=== PATIENT | female | born 1980 | race Caucasian/White ===

== ENCOUNTER 2021-04-15 21:57 | Emergency (ER) | payer OTHER, SELFPAY ==
--- NOTE | ~2021-04-15 | CT_ITS ---
EXAMINATION: CT brain wo con INDICATION: Head injury COMPARISON: 04/21/2019 TECHNIQUE: Standard unenhanced head CT. The dose-length product (DLP) was 681.00 mGy-cm. The mA was a djusted according to patient size. Iterative reconstruction technique was employed. FINDINGS: There is no intracranial hemorrhage, acute infarction, or abnormal mass lesion. There is a chronic infarct of the left occipital lobe. A left posterior parietal scalp hematoma is noted. The ve ntricles are normal. There is no abnormal mass effect or midline shift. The dick-white matter differe ntiation is normal. The basal cisterns are patent. The orbits are normal. The paranasal sinuses, mast oids and calvarium are normal. IMPRESSION: 1. Left parietal scalp hematoma without acute intracranial abnormality. 2. Chronic left occipital lobe infarct. Reviewed, dictated and finalized at location D.
--- NOTE | ~2021-04-15 | CT_ITS ---
EXAMINATION: CT cervical spine wo con DATE: 04/16/2021 01:13 INDICATION: Neck injury and pain. Fall. TECHNIQUE: Computed tomography (CT) of the cervical spine was performed without intravenous contrast. Automated exposure control and iterative reconstruction technique were employed. The dose-length pro duct was 352.54 mGy-cm. COMPARISON: None FINDINGS: There is hypolordosis of cervical spine. Vertebral body heights are normal. There is mildly decreased disc height at C4-C5. The following disc levels are specifically discussed: C2-C3 through C6-C7: There is no uncovertebral joint osteoarthritis. There is no facet joint osteoart hritis. There is no neural foraminal stenosis. There is no central canal stenosis. C7-T1: There is no uncovertebral joint osteoarthritis. There is mild bilateral facet joint osteoarthr itis. There is no neural foraminal stenosis. There is no central canal stenosis. IMPRESSION: 1. No fracture. Reviewed, dictated and finalized at location A. IMPRESSION: 1. No fracture.
--- NOTE | ~2021-04-15 | CT_ITS ---
EXAMINATION: CT thoracic spine wo con DATE: 04/16/2021 01:14 INDICATION: Thoracic back injury and pain. TECHNIQUE: Computed tomography (CT) of the thoracic spine was performed without intravenous contrast. Automated exposure control and iterative reconstruction technique were employed. The dose-length pro duct was 1073.30 mGy-cm. COMPARISON: CT abdomen and pelvis 02/02/2012 FINDINGS: There is 5 degrees dextrocurvature of thoracic spine. There is a burst fracture of T5 with 1/5 loss of height and retropulsion of bone 2 mm into central spinal canal. There is a compression fr acture of T7 with 1/5 loss of height. Intervertebral disc heights are normal. There is multilevel mil d facet joint osteoarthritis. On the left, there is mild neural foraminal stenosis at T3-T4. There is mild central canal stenosis at T5. IMPRESSION: 1. Acute T5 burst fracture. T7 compression fracture, likely acute. 2. Mild thoracic spondylosis. Reviewed, dictated and finalized at location A.
[2021-04-15 22:11] VITALS: BP 125/108; PULSE 85; RESP 16; TEMP 36.4; O2SAT 100
[2021-04-15 23:25] VITALS: BP 124/92; PULSE 80; RESP 16; O2SAT 99
--- NOTE | 2021-04-16 00:43 | ED.HEATRA ---
HPI - Head Injury General Chief complaint: Head Injury Stated complaint: fell down stairs, hit head, short of breath Time Seen by Provider: 04/16/21 00:16 Source: patient Mode of arrival: ambulatory Limitations: no limitations History of Present Illness HPI Narrative: Patient is a 40-year-old female complaining of head and mid back pain after falling down 10 flight of stairs prior to arrival. Patient states that her pain is an 8 out of 10, dull, aching, nonradiating. Patient denies any LOC. Patient states that she was able to get up and ambulate after the fall. Patient denies any chest pain, abdominal pain, pelvic, hip or any extremity pain/injury. Related Data Allergies Allergy/AdvReac Type Severity Reaction Status Date / Time aspirin Allergy Mild (IBUPROFEN Verified 04/15/21 22:17 OKAY) Penicillins Allergy Mild Unknown Verified 04/15/21 22:17 Sulfa (Sulfonamide Allergy Mild Unknown Verified 04/15/21 22:17 Antibiotics) quetiapine Allergy Unknown worsening Verified 04/15/21 22:17 symptoms Review of Systems Review of Systems: All systems reviewed & are unremarkable except as noted in HPI and below Constitutional: Constitutional: Denies body ache(s), Denies chills, Denies excessive sweating, Denies fatigue, Denies fever(s), Denies headache(s), Denies lethargy, Denies malaise, Denies weakness and Denies weight loss Eyes: Eyes: Denies blurry vision, Denies change in vision and Denies loss of vision ENT: Denies dizziness, Denies ear discharge, Denies headache(s), Denies lip swelling, Denies epistaxis, Denies nasal congestion, Denies neck pain, Denies throat swelling and Denies tongue swelling Cardiovascular: Cardiovascular: Denies chest pain, Denies chest pain at rest, Denies chest pain with activity, Denies diaphoresis, Denies rapid heart rate, Denies edema, Denies irregular heart rhythm, Denies lightheadedness, Denies palpitations, Denies dyspnea and Denies dyspnea on exertion Respiratory: Respiratory: Denies chest congestion, Denies cough, Denies hemoptysis, Denies dyspnea and Denies dyspnea on exertion Gastrointestinal: Gastrointestinal: Denies abdominal pain, Denies melena, Denies hematochezia, Denies diarrhea, Denies nausea, Denies vomiting and Denies hematemesis Musculoskeletal: Musculoskeletal: Denies abnormal gait, Denies deformity, Denies joint swelling, Denies limited range of motion, Denies neck pain and Denies numbness Neurologic: Denies Abnormal speech present, Denies abnormal gait, Denies confusion, Denies dizziness, Denies headache(s), Denies focal weakness, Denies loss of vision, Denies numbness, Denies Other visual disturbances, Denies Sensory deficit (Neuro) and Denies weakness Psychiatric: Psychiatric: Denies confusion, Denies depression, Denies auditory hallucinations, Denies homicidal ideation and Denies suicidal ideation Endocrine: Endocrine: Denies cold intolerance, Denies excessive sweating, Denies fatigue, Denies heat intolerance and Denies palpitations Hematologic/Lymphatic: Hematologic/Lymphatic: Denies easy bleeding and Denies easy bruising Allergic/Immunologic: Allergic/Immunologic: Denies lip swelling, Denies throat swelling and Denies tongue swelling PMFSH Comments Past medical history: None Family history: Noncontributory Social history: Non-smoker, occasional EtOH use, denies any drug use Exam Const: General: cooperative, healthy appearing, comfortable, no acute distress, well developed, alert and awake; No confusion Orientation/consciousness: oriented to person, oriented to place, oriented to time, patient oriented x3 and No confusion Limitations: no limitations HENMT: Head: normal to inspection, normocephalic and atraumatic Ears: hearing grossly normal bilaterally, TM normal on the right and TM normal on the left General nose exam: Normal external nose present, Normal nares present and No nasal discharge present Face and sinus: normal facial exam Mouth: Yes Normal oral and palat
[2021-04-16] MEDS: CYCLOBENZAPRINE HCL 10 MG TABLET PO (01:35)
[2021-04-16 01:37] VITALS: BP 126/89; PULSE 92; RESP 18; O2SAT 98
[2021-04-16] MEDS: HYDROcodone/acetaminophen (*CRX) 5-325 MG TABLET 1 TAB PO (01:37)
== END 2021-04-16 02:41 | disposition left against medical advice (07) ==
PROVIDERS: Emergency Provider Emergency Medicine
DX: S22.050A Wedge compression fracture of T5-T6 vertebra, initial encounter for closed fracture (principal); S22.060A Wedge compression fracture of T7-T8 vertebra, initial encounter for closed fracture; S09.90XA Unspecified injury of head, initial encounter; W10.8XXA Fall (on) (from) other stairs and steps, initial encounter
CPT/HCPCS: 70450; 72125; 72128; 99284; A9270

== ENCOUNTER 2021-07-15 15:27 | Emergency (ER) | payer OTHER, SELFPAY ==
--- NOTE | ~2021-07-15 | XR_ITS ---
EXAMINATION: XR elbow LT min 3V EXAM DATE: 07/15/2021 15:51 INDICATION: Fall, injury, left elbow pain. Initial encounter. TECHNIQUE: Left elbow frontal, lateral with flexion, and oblique projections obtained and reviewed. There is no prior study for comparison. FINDINGS: There is acute closed posttraumatic fracture through the mid aspect of the left ulnar olecr anon with about 2 cm distraction. Extensive overlying swelling, hematoma. Elbow joint hemarthrosis. R adial head appears intact. IMPRESSION: Left ulnar olecranon fracture, significant distraction; orthopedic consult. Reviewed, dictated and finalized at location A.
[2021-07-15 15:38] VITALS: BP 104/76; PULSE 115; RESP 20; TEMP 36.8; O2SAT 98
--- NOTE | 2021-07-15 17:12 | ED.UPPEXIN ---
HPI - Extremity Injury (Upper) General Chief Complaint: Extremity Injury, Upper Stated Complaint: Left Arm Pain Source: patient and RN notes reviewed Limitations: no limitations History of Present Illness HPI narrative: The right-handed patient, previously living in a [facility], presents with left elbow pain. Patient states she slipped and fell down several stairs striking her left elbow. She complains of moderate pain and slight abrasion bleeding- that is worse with motion, better at rest or elevation. No numbness/weakness, bleeding now, deformity-but there is definite swelling. Screening x-ray reveals significantly displaced olecranon fracture; discussed plan to splint, provide pain medicines and consult on-call orthopedics for prompt follow-up. Related Data Allergies Allergy/AdvReac Type Severity Reaction Status Date / Time aspirin Allergy Mild (IBUPROFEN Verified 04/15/21 22:17 OKAY) Penicillins Allergy Mild Unknown Verified 04/15/21 22:17 Sulfa (Sulfonamide Allergy Mild Unknown Verified 04/15/21 22:17 Antibiotics) quetiapine Allergy Unknown worsening Verified 04/15/21 22:17 symptoms Review of Systems Review of Systems: General/Constitutional: No weight loss,fever Eyes: N0: Redness,discharge Ears/Nose/Throat: No: Epistaxis,ear discharge Respiratory: Denies: Hemoptysis Gastrointestinal: No Vomiting, Bleeding-rectal Skin: No Lumps, eruption Neurologic: No Focal Weakness,Sz Hematologic: Denies: Petechiae/Purpura Psychiatric: No: Suicida ideationl All Other Systems: Reviewed and Negative PMFSH Comments At time of signature, agree with nursing past medical, surgical, social and family history. There is no relevant family history pertinent to the presenting complaint Exam Narrative: General Appearance: Well appearing, conjunctiva clear Mouth/Throat: Normal appearing, Normal lips,: Supple Respiratory: Airway patent, No respiratory distress MS-elbow: Nl strength (mostly intact, limited flexion/extension by pain), Tenderness (olecranon, with mild decreased ROM), Swelling (olecranon), Other (no anterior drawer, no collateral laxity Skin: Warm, Dry, Normal color; olecranon abrasion Neurological: Awake and alert, Normal affect Course Course Emergency Course: Films visualized, interpreted by radiologist, agree, ABnormal see report Vital Signs Vital signs: Vital Signs Temperature 98.2 F 07/15/21 15:38 Pulse Rate 115 H 07/15/21 15:38 Respiratory Rate 07/15/21 15:38 Blood Pressure 104/76 07/15/21 15:38 Pulse Oximetry 98 07/15/21 15:38 Temperature 98.2 F 07/15/21 15:38 Pulse Rate 115 H 07/15/21 15:38 Respiratory Rate 07/15/21 15:38 Blood Pressure 104/76 07/15/21 15:38 Pulse Oximetry 98 07/15/21 15:38 Discharge Plan Discharge Clinical Impression: Closed olecranon fracture Patient Disposition: Home, Self-Care Condition: Improved Instructions: Elbow Fracture (ED) Additional Instructions: Call referral orthopedics Dr. Velez to confirm appointment Wear sling or splint Prescriptions: New mupirocin 2 % ointment 1 applic TOPICAL TID Qty: 30 RF: 0 acetaminophen-codeine 300-30 mg tablet 1 - 1.5 tablet PO HS PRN (Reason: pain) Qty: 20 RF: 0 cephalexin 500 mg tablet 1,000 mg PO Q12H 3 Days Qty: 12 RF: 0 No Action hydrocodone-acetaminophen 5-325 mg tablet 1 tablet PO Q6H PRN (Reason: pain) Qty: 12 RF: 0 Follow-up/Referrals: PHYSICIAN,HOUSING ASSISTANT PROPERTY MANAGER [Primary Care Provider] -
== END 2021-07-15 17:24 | disposition home or self-care (01) ==
PROVIDERS: Emergency Provider Emergency Medicine
DX: S52.022A Displaced fracture of olecranon process without intraarticular extension of left ulna, initial encounter for closed fracture (principal); W10.9XXA Fall (on) (from) unspecified stairs and steps, initial encounter
CPT/HCPCS: 29105; 73080; 99214; A4565; G0463

== ENCOUNTER → 2021-07-18 02:33 | Outpatient (CLI) | payer OTHER, SELFPAY ==
[2021-07-18 16:55] LABS: SARS-CoV-2 RNA PCR Positive
== END ==
PROVIDERS: Visit Provider Orthopaedic Surgery
DX: Z01.812 Encounter for preprocedural laboratory examination (principal); U07.1 COVID-19
CPT/HCPCS: C9803; U0003; U0005

== ENCOUNTER 2021-07-19 15:10 | Inpatient (IN) | payer OTHER, SELFPAY ==
[2021-07-17 15:18] VITALS: BMI 24.5
--- NOTE | 2021-07-18 13:17 | PCCCNOTE ---
Contacted by Dr Velez office regarding pt. Pt currently lives at [facility] in [facility]. They are concerned that the pt will not be able to function independently after the Olecranon Fixation. The pt already has balance and mobility deficits. Dr. Velez office states that they plan to keep pt overnight and can do a PT evaluation. I contacted [facility] at [phone] and spoke with a automobile service station manager (did not get name). They will accept pt back but if pt cannot function independently, they may need to send back to hospital. [facility] would like to be contacted at time of DC to get update and any care needs to make sure it is appropriate. Contact number [phone].
[2021-07-19] VITALS (12 sets, daily range): BP systolic 100–119; BP diastolic 65–75; PULSE 65–99; RESP 12–18; TEMP 35.9–36.5; O2SAT 95–100; BMI 29.7
--- NOTE | ~2021-07-19 | US_ITS ---
EXAMINATION: US venous doppler [facility] DATE: 07/20/2021 16:59 INDICATION: Lower limb edema TECHNIQUE: Mckeon scale images without and with compression and Doppler images of the bilateral lower e xtremity veins were obtained. COMPARISON: 06/30/2007 FINDINGS: The right common femoral vein, profunda femoral vein, femoral vein, popliteal vein, peroneal trunk, p osterior tibial veins, and greater saphenous vein are patent. The left common femoral vein, profunda femoral vein, femoral vein, popliteal vein, peroneal trunk, po sterior tibial veins, and greater saphenous vein are patent. IMPRESSION: 1. Patent bilateral lower extremity veins. No evidence of deep venous thrombosis. Reviewed, dictated and finalized at location A. IMPRESSION: 1. Patent bilateral lower extremity veins. No evidence of deep venous thrombosi s.
--- NOTE | ~2021-07-19 | XR_ITS ---
EXAMINATION: XR surgery orthopedic DATE: 07/19/2021 12:57 INDICATION: ORIF left olecranon fracture TECHNIQUE: 2 fluoroscopic images of the left elbow were obtained during procedure performed by Dr. Chris kennedy. Radiologist was not present for the imaging or procedure. The amount of fluoroscopy time used dur ing this procedure was 0.1 minutes. COMPARISON: 07/17/2021 FINDINGS: Interval reduction to essentially anatomic alignment of a comminuted intra-articular fracture at the base of the olecranon. The fractures fixed with a dorsal plate and screws. No other fractures identif ied. Joint spaces appear normal. Expected small amount of postoperative intra-articular and soft tiss ue gas. IMPRESSION: 1. Essentially anatomic alignment post open reduction internal fixation of an intra-articular fractur e of the left olecranon. Reviewed, dictated and finalized at location B. IMPRESSION: 1. Essentially anatomic alignment post open reduction internal fixation of an i ntra-articular fracture of the left olecranon.
--- NOTE | 2021-07-19 09:21 | SUR.PREOP ---
0715 Dr Velez aware patient Covid positive states will proceed with case today. 0900 patient is aware of results and confirmed she will arrive at 10am today.
--- NOTE | 2021-07-19 10:16 | PCCCNOTE ---
Spoke with [facility] personnel. Having a positive covid result is not a barrier to the patient's return to her living facility. They did reiterate that the patient must be 100% independent with her ADL's. If she is not 100% independent she will not be able to return to [facility]. Please include PT/OT notes in her discharge paperwork indicating her independence.
--- NOTE | 2021-07-19 10:58 | WPDANESEPPF ---
Anes - Initial Pre Proc Eval Procedure: Operation Date: 07/19/21 12:00 Proposed Procedures p Open Reduction Internal Fixation Left Olecranon - Lavell Velez MD Date/Time: 07/19/21 10:58 Surgeon: Lavell Velez MD Pre Op Diagnosis: left olecranon fx Patient Data Age: 40 Gender: F Height: 1.59 m Weight: 62 kg Allergies Allergy/AdvReac Type Severity Reaction Status Date / Time quetiapine Allergy Unknown worsening Verified 04/15/21 22:17 symptoms Home Medications Medication Instructions Recorded Confirmed Type hydrocodone-acetaminophen 1 tablet PO Q6H PRN #12 tablet 04/16/21 07/17/21 Rx acetaminophen-codeine 1 - 1.5 tablet PO HS PRN #20 tablet 07/15/21 07/17/21 Rx mupirocin 1 applic TOPICAL TID #30 gm 07/15/21 07/17/21 Rx cephalexin 500 mg tablet 1,000 mg PO Q12H 3 Days #12 tablet 07/17/21 07/17/21 Rx olanzapine 15 mg tablet 15 mg PO DAILY tablet 07/17/21 07/17/21 History oxcarbazepine 300 mg tablet 300 mg PO BID tablet 07/17/21 07/17/21 History Patient hx anesthesia problems: none Family hx anesthesia problems: none Results Review: All pre-operative results and documents have been reviewed as part of the pre-operative evaluation. [facility] Past Medical History Medical History (Updated 07/19/21 @ 10:58 by Michael Rivers MD) Bipolar 1 disorder Migraine Social History Social History Smoking packs per day: 0.75 Smoking cigarettes per day: 15.0 Years smoked: 21 Smoking pack-years: 15.75 Smoking status: Current every day smoker Tobacco type: cigarettes Alcohol intake: never Substance use: never Substance use type: does not use Living arrangements: alone Gender identity (if verbalized by the patient): Female Spiritual care concerns: No Anes - Eval Final PreProcedure Day of Procedure 07/19/21 10:58 Patient weight: normal Heart: regular rate and rhythm Lungs: clear to auscultation Airway: Mallampati scale class II (previous tracheostomy) Neurological: alert and oriented Last oral intake: >/= 8 hours ASA classification: II Emergent: no Anesthetic plan: proceed Anesthesia type and monitoring: general ETT and standard monitoring Results Review: All pre-operative results and documents have been reviewed as part of the pre-operative evaluation. Informed Consent: The patient's anesthetic plan and its attendant risks and benefits were discussed with the patient/family/POA. Questions were solicited and answers provided to the satisfaction of the patient/family/POA.
[2021-07-19] MEDS: LACTATED RINGERS 1,000 ML 30 ML IV CONT ×2 (11:02→14:11)
[2021-07-19] MEDS: KETOROLAC 15 MG/ML VIAL (*BKC) IV PUSH (11:03)
--- NOTE | 2021-07-19 11:09 | WPDHPUPDATE1 ---
History and Physical Update Update Date/Time: 07/19/21 11:09 History and Physical has been reviewed, including an updated exam of the patient. She tested COVID positive, but due to fracture, we will plan on proceeding.. Risks, benefits, and alternatives have been discussed and questions answered. Patient agrees to proceed with procedure.
[2021-07-19] MEDS: ACETAMINOPHEN 500 MG TABLET 1000 MG PO (11:10)
[2021-07-19] MEDS: ceFAZolin 2 GM/D5W 50 ML 2 GM/50 ML BAG IVPB ×2 (11:19→17:32)
[2021-07-19] MEDS: ceFAZolin SODIUM 1 GM VIAL IRRIGATION (12:05)
--- NOTE | 2021-07-19 13:45 | W.PM.PROC2 ---
Procedure Note - Detailed Date of Procedure 07/19/21 Pre-op Diagnosis left olecranon fx Post-op Diagnosis other ( grade 1 open left olecranon fracture) Procedure Performed ORIF left olecranon fracture with wound debridement Surgeon Lavell Velez MD Glass Blowing Instructor Purvi Chiu Anesthesia general Description of Procedure The patient was identified and proper site identified. She was taken immediately back to the operating room were her preoperative evaluation was carried out because of the COVID positive status. She was transferred to the OR table placing her supine taking care to pad her torso extremities. After general anesthetic induction and intubation, a nonsterile turns placed high in the left arm. She was positioned in the right lateral decubitus position securing her with padded hip press him making sure that her torso extremities were properly padded. The left upper extremity is prepped and draped usual sterile fashion. The extremity was gravity exsanguinated and the tourniquet was inflated to 250 millimeters of mercury, remaining up for 80 minutes. The small 1 centimeter laceration over the tip the olecranon was extended and was found that there was a oblique tract that went from the fracture site to the skin making this a grade 1 open fracture. Subcutaneous tissue sharply dissected full-thickness all the way down to the fracture site. The wound track was excised along with the skin edges at that location. The fracture was identified and cleared of debris. The wound was extensively irrigated. Two main fragments were provisionally secured with K-wires and then the smaller fragments able to be. We secured as well. A six hole olecranon plate from the [employer] set was then secured to the olecranon and proximal ulna with fluoroscopic visualization giving it an anatomic reduction of the articular surface. Small loose fragments were able to be captured by the plate holding them in position. This construct was stable as the elbow was taken through range of motion. Wound was again irrigated with copious amount of sterile saline. Subcutaneous tissues reapproximated with 2-0 Monocryl, skin with 2-0 Stratafix subcuticular stitch and raymundo. Sterile dressing was applied and tourniquet was released. She was returned to a supine position. An exceptionally well-padded posterior elbow splint with the elbow flexed 90? was applied. She was awakened, extubated and recovered in the operating room. After which she will be transferred to a bed and taken to the floor. She did receive perioperative antibiotics and prior to the closure, 1 gram of powdered Ancef was sprinkled in the deep part of the wound. Estimated blood loss was only about 20 milliliters, much of which was fracture hematoma. Estimated Blood Loss 20 Tourniquet Time 80 Drains No Packing No Pathology none sent Complications No immediate complications Condition stable Disposition other ( Recovered in the operating room.)
[2021-07-19] MEDS: fentaNYL CITRATE INJ (*CRX) 100 MCG/2 ML VIAL 25 MCG IV PUSH ×3 (14:07→14:46)
--- NOTE | 2021-07-19 15:59 | ADMGEN ---
This patient, Purvi Hale, was admitted to [facility] Surg Room 310-01 from [place]. Patient/family oriented to hospital policies and general routines including ID bracelet, bed and alarms, visiting hours, pain management, procedures, bathroom and other care routines, personal items, smoking policy, room service/diet, and visiting hours. pt orientated to use of call light. Information on how to activate the Rapid Response Team has been discussed. Patient/Family are encouraged to report perceived risks to care and to ask questions if they do not understand what they are told or what they should do.
[2021-07-19] MEDS: DEXTROSE 5%/0.45% SOD CHL 1,000 ML 80 ML IV CONT (16:35)
[2021-07-19] MEDS: DOCUSATE SODIUM 100 MG CAPSULE PO (17:32)
[2021-07-19] MEDS: OXcarbazepine 300 MG TABLET PO (17:32)
--- NOTE | 2021-07-19 19:00 | WPDCN ---
Assessment and Plan Assessment and plan (1) Olecranon fracture: Code(s): S52.023A - Displaced fracture of olecranon process without intraarticular extension of unspecified ulna, initial encounter for closed fracture Status: Acute Assessment and Plan: Postoperative day 0, status post ORIF with wound debridement. Wound care and pain control will be deferred to Dr. Velez as well as DVT prophylaxis. (2) SARS-CoV-2 positive: Code(s): U07.1 - COVID-19 Status: Acute Assessment and Plan: Patient has no symptoms of such at this time. She will remain in isolation per protocol. (3) Bipolar 1 disorder: Code(s): F31.9 - Bipolar disorder, unspecified Status: Acute Assessment and Plan: Resume olanzapine and oxcarbazepine. (4) Anxiety and depression: Code(s): F41.9 - Anxiety disorder, unspecified; F32.9 - Major depressive disorder, single episode, unspecified Status: Acute Assessment and Plan: As above. (5) Nicotine dependence: Code(s): F17.200 - Nicotine dependence, unspecified, uncomplicated Status: Acute Assessment and Plan: Smoking cessation is encouraged. She declines the need for nicotine patch. (6) Falls: Code(s): W19.XXXA - Unspecified fall, initial encounter Status: Acute Assessment and Plan: Patient seems to have frequent falls. PT/OT consulted. Initiate fall precautions. Additional Plan Thank you for allowing us to participate in this patient's care. Please do not hesitate to contact us with any questions. Supervising physician for this medical consultation is Dr. Darryl Roca. HPI Data of Consult Date/Time: 07/19/21 19:00 Requesting Physician: Lavell Velez MD Primary Care Provider: CIGAR MACHINE FEEDER PHYSICIAN Consult Narrative Narrative: This is a pleasant 40-year-old female smoker with history of traumatic brain injury and bipolar disorder whom the hospitalist service has been consulted for management of her medical conditions postoperatively. The patient sustained a left olecranon fracture in a fall several days ago and she underwent ORIF of that fracture with wound debridement today per Dr. Velez. her surgery was performed under general seizure with no immediate complications documented an estimated blood loss of 80 mL. Postoperatively she complains of moderate pain in her left arm though it has been manageable. She was able to eat dinner this evening without issue. She denies paresthesias, skin color, and temperature changes distal to the surgical site. She has not had postoperative fever, chills, chest pain, shortness of breath, nausea, or vomiting. Incidentally she tested positive for COVID on her screening test yesterday though she has no symptoms of such. She specifically denies congestion, rhinorrhea, odynophagia, cough, shortness of breath, vomiting, and diarrhea. No known COVID exposure. Review of Systems Review of Systems: Twelve systems were reviewed with pertinent positives and negatives as per HPI. She denies recent cold and flu symptoms. No fever, chills, or sweats. No chest pain or shortness of breath. No cough. No nausea, vomiting, or diarrhea. Denies dysuria. Patient had a traumatic brain injury around age 18 and she has residual right-sided weakness from that. Looking through her previous visit history it appears that she has had several falls in the past and we did discuss this and she told me that she think she should probably walk with a cane or a walker though she typically does not. Except as documented, all other systems were reviewed and are negative. [facility] Past Medical History Medical History (Updated 07/19/21 @ 22:10 by Emily Hart PA-C) Anxiety and depression Bipolar 1 disorder Migraine Nicotine dependence Traumatic brain injury The patient fell approximately 25 ft off of
[2021-07-19] MEDS: HYDROcodone/acetaminophen (*CRX) 5-325 MG TABLET 2 TAB PO (20:48)
[2021-07-19] MEDS: FAMOTIDINE 20 MG TABLET PO (20:49)
[2021-07-20] VITALS (7 sets, daily range): BP systolic 103–124; BP diastolic 57–85; PULSE 88–115; RESP 16–24; TEMP 36.4–37.2; O2SAT 96–99
[2021-07-20] MEDS: MORPHINE SULFATE (*CRX) 2 MG/ML INJ 3 MG IV PUSH ×2 (00:11→11:30)
[2021-07-20] MEDS: ceFAZolin 2 GM/D5W 50 ML 2 GM/50 ML BAG IVPB ×3 (02:27→17:11)
[2021-07-20] MEDS: KETOROLAC 30 MG/ML VIAL (*BKC) IV PUSH ×2 (02:27→09:42)
[2021-07-20] MEDS: HYDROcodone/acetaminophen (*CRX) 5-325 MG TABLET 2 TAB PO ×3 (03:04→17:46)
[2021-07-20 06:47] LABS: Basophils Percent Auto 0.2 % (0.2-1.2); Eosinophils Percent Auto 0.2 % (0-4.4); Hematocrit 38.4 % (37.0-47.0); Hemoglobin 12.6 g/dL (12.0-15.0); Immature Granulocyte Absolute 0.02 K/mm3 (0.00-0.031); Immature Granulocyte Percent A 0.2 % (0-0.5); Lymphocytes Absolute Auto 1.94 K/mm3 (0.9-3.2); Lymphocytes Percent Auto 22.7 % (18.3-44.2); Mean Corpuscular HGB Conc 32.8 g/dl (32-36); Mean Corpuscular Hemoglobin 30.2 pg (26-34); Mean Corpuscular Volume 92.1 fl (80-100); Mean Platelet Volume 10.4 fl (7.4-10.4); Monocytes Absolute Auto 1.1 K/mm3 (0.1-0.6); Monocytes Percent Auto 12.7 % (2.6-8.5); Neutrophils Absolute Auto 5.5 K/mm3 (1.3-6.7); Platelet Count Result 211 k/mm3 (150-375); Red Blood Count 4.17 M/mm3 (4.2-5.4); Red Cell Distribution Width 12.2 % (11.5-14.5); White Blood Count 8.6 K/mm3 (4.5-10.0)
[2021-07-20 07:00] LABS: Alanine Aminotransferase 13 U/L (4-35); Albumin Level 3.6 g/dL (3.5-5.1); Alkaline Phosphatase 66 U/L (38-126); Anion Gap 5 mmol/L (8-16); Aspartate Amino Transferase 19 U/L (14-36); Bilirubin,Total 0.4 mg/dL (0.2-1.3); Blood Urea Nitrogen 6 mg/dL (7-17); Calcium 8.7 mg/dL (8.4-10.2); Carbon Dioxide 29 mmol/L (22-30); Chloride 103 mmol/L (98-107); Estimated CRCL calculation 117 ml/min; Estimated Glomerular Filt Rate > 60; Glucose 109 mg/dL (65-110); Magnesium 2.2 mg/dL (1.6-2.3); Potassium 3.6 mmol/L (3.4-5.0); Sodium 137 mmol/L (137-145)
--- NOTE | 2021-07-20 07:09 | PM.IMPN ---
Progress Note: A&P Additional Plan START OF DOCTOR NASRA?S PROGRESS NOTE Subjective: The patient indicates that she has minimal pain over her left wrist. She denies paresthesia/anesthesia of her left upper extremity. She indicates that her pain is adequately controlled with p.r.n. analgesia. Overnight she has fever, rigors, nausea, vomiting, cough, wheeze, abdominal pain, chest pain, dyspnea. She states postoperatively she has ambulated. She states postoperatively she has not yet had a bowel movement. 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 Sensorium of bilateral upper extremities are equal and intact Pertinent Laboratory Results / Pertinent Radiology Results / Pertinent Diagnostic Results / Pertinent Vital Signs: Heart rate 104 beats per minute Assessment / Plan: Left olecranon fracture, status post July 19, 2021 with orthopedic surgery: ORIF left olecranon fracture with wound debridement. P.r.n. analgesia. IV lactated Ringer's at 30 mL/hour. Follow up in Orthopedic surgery/recommendations COVID-19 positive. Asymptomatic. No treatment indicated at this time Bipolar disorder. Trileptal 300 mg p.o. b.i.d. plus Zyprexa 15 mg. Smoker. 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 Colace 100 mg p.o. b.i.d. plus Pepcid 20 mg p.o. q.12 hours DVT prophylaxis. Bilateral SCDs Disposition: END OF DOCTOR NASRA?S PROGRESS NOTE Subjective Date/time seen: 07/20/21 07:09 Objective Data Vital Signs Vital Signs: Vital Signs - 24 hr 07/19/21 11:03 07/19/21 13:35 07/19/21 13:50 Temperature 96.9 F L 96.6 F L Pulse Rate 83 76 69 Respiratory Rate 14 15 15 Blood Pressure 112/69 105/71 110/72 Pulse Oximetry 95 99 100 07/19/21 14:05 07/19/21 14:20 07/19/21 14:35 Temperature 96.8 F L Pulse Rate 71 67 66 Respiratory Rate 15 15 18 Blood Pressure 118/71 117/73 Pulse Oximetry 99 100 96 07/19/21 14:50 07/19/21 15:05 07/19/21 15:30 Temperature 97.5 F L Pulse Rate 69 68 65 Respiratory Rate 15 12 Blood Pressure 119/75 119/75 104/66 Pulse Oximetry 99 98 97 07/19/21 15:45 07/19/21 16:15 07/19/21 20:55 Temperature 97.5 F L 97.7 F 97.2 F L Pulse Rate 66 70 99 Respiratory Rate 12 18 18 Blood Pressure 100/67 106/65 108/69 Pulse Oximetry 99 100 98 07/20/21 00:55 07/20/21 04:13 Temperature 98.2 F 98.6 F Pulse Rate 88 104 H Respiratory Rate 18 16 Blood Pressure 103/65 110/65 Pulse Oximetry 96 96 Intake/Output Intake/Output: Intake & Output 07/17/21 07/18/21 07/19/21 07/20/21 23:59 23:59 23:59 23:59 Intake Total 690 350 Balance 690 350 Meds/Results Medications: Active Medications Generic Name Dose Route Start Last Admin Trade Name Freq PRN Reason Stop Dose Admin Acetaminophen 650 mg 07/19/21 15:10 Acetaminophen 325 Mg Tablet PO Q6H PRN Pain Rated 1-3 Hydrocodone Bitart/Acetaminophen 1 tab 07/19/21 15:10 Hydrocodone/Acetaminophen (*Crx) 5-325 Mg Tablet PO Q3H PRN Pain Rated 4-6 Hydrocodone Bitart/Acetaminophen 2 tab 07/19/21 15:10 07/20/21 03:04 Hydrocodone/Acetaminophen (*Crx) 5-325 Mg Tablet PO 2 tab Q6H PRN Administration Pain Rated 7-10 Docusate Sodium 100 mg 07/19/21 17:00 07/19/21 17:32 Docusat
[2021-07-20 07:49] LABS: Thyroid Stimulating Hormone Reflex 0.405 uIU/mL (0.465-4.68)
--- NOTE | 2021-07-20 08:00 | PM.PNORT ---
Progress Note: A&P Assessment and Plan (1) Olecranon fracture: Qualifiers: Encounter type: subsequent encounter Fracture type: open Open fracture type: open type I or II Laterality: left Fracture healing: with routine healing Qualified Code(s): S52.022E - Displaced fracture of olecranon process without intraarticular extension of left ulna, subsequent encounter for open fracture type I or II with routine healing Code(s): S52.023A - Displaced fracture of olecranon process without intraarticular extension of unspecified ulna, initial encounter for closed fracture Status: Acute Assessment and Plan: 40-year-old female postop day one debridement of grade 1 open right leg chronic fracture with definitive fixation. I did discuss the surgery with her. Because of this being a grade 1 open fracture, will plan to have her on IV antibiotics for 72 hours which would mean anticipate discharge on Thursday. COVID positive status noted. Appears to be asymptomatic. Appreciate hospitalist's input regarding medical issues. Subjective Subjective Date/Time Seen: 07/20/21 08:00 Post Op day: 1 Principal diagnosis: Status post ORIF grade 1 open left olecranon fracture Exam Const: General: cooperative, comfortable and no acute distress Nutritional Appearance: well nourished Resp: Effort & Inspection: normal respiratory effort and able to speak in complete sentences GI: GI Palp: No abdominal tenderness and Yes Soft to palpation Extrem: Other: Right upper and bilateral lower extremity exam nonfocal. Left upper extremity splint intact. Neurovascular status grossly intact left upper extremity. Some swelling in the digits left hand. Objective Data Vital Signs Vital Signs: Vital Signs - 24 hr 07/19/21 11:03 07/19/21 13:35 07/19/21 13:50 Temperature 96.9 F L 96.6 F L Pulse Rate 83 76 69 Respiratory Rate 14 15 15 Blood Pressure 112/69 105/71 110/72 Pulse Oximetry 95 99 100 07/19/21 14:05 07/19/21 14:20 07/19/21 14:35 Temperature 96.8 F L Pulse Rate 71 67 66 Respiratory Rate 15 15 18 Blood Pressure 118/71 117/73 Pulse Oximetry 99 100 96 07/19/21 14:50 07/19/21 15:05 07/19/21 15:30 Temperature 97.5 F L Pulse Rate 69 68 65 Respiratory Rate 15 12 Blood Pressure 119/75 119/75 104/66 Pulse Oximetry 99 98 97 07/19/21 15:45 07/19/21 16:15 07/19/21 20:55 Temperature 97.5 F L 97.7 F 97.2 F L Pulse Rate 66 70 99 Respiratory Rate 12 18 18 Blood Pressure 100/67 106/65 108/69 Pulse Oximetry 99 100 98 07/20/21 00:55 07/20/21 04:13 Temperature 98.2 F 98.6 F Pulse Rate 88 104 H Respiratory Rate 18 16 Blood Pressure 103/65 110/65 Pulse Oximetry 96 96 Intake/Output Intake/Output: Intake & Output 07/17/21 07/18/21 07/19/21 07/20/21 23:59 23:59 23:59 23:59 Intake Total 690 / 690 350 / 350 Balance 690 / 690 350 / 350 Meds/Results Medications: Active Medications Generic Name Dose Route Start Last Admin Trade Name Freq PRN Reason Stop Dose Admin Acetaminophen 650 mg 07/19/21 15:10 Acetaminophen 325 Mg Tablet PO Q6H PRN Pain Rated 1-3 Hydrocodone Bitart/Acetaminophen 1 tab 07/19/21 15:10 Hydrocodone/Acetaminophen (*Crx) 5-325 Mg Tablet PO Q3H PRN Pain Rated 4-6 Hydrocodone Bitart/Acetaminophen 2 tab 07/19/21 15:10 07/20/21 03:04 Hydrocodone/Acetaminophen (*Crx) 5-325 Mg Tablet PO 2 tab Q6H PRN Administration Pain Rated 7-10 Docusate Sodium 100 mg 07/19/21 17:00 07/19/21 17:32 Docusate Sodium 100 Mg Capsule PO 100 mg BID JUAN Administration Famotidine 20 mg 07/19/21 21:00 07/19/21 20:49 Famotidine 20 Mg Tablet PO 20 mg Q12HR JUAN Administration Cefazolin Sodium 2 gm in 50 mls @ 100 mls/hr 07/19/21 18:00 07/20/21 02:27 Ancef 2 Gm/D5w 50 Ml IVPB 07/22/21 10:29 100 mls/hr Q8H JUAN Administration Ketorolac Tromethamine 30 mg 07/19/21 23:41 07/20/21 02:27 Ketorolac 30 Mg/Ml Vial (*Bkc) IV PUS
[2021-07-20 08:39] LABS: Free T4 Free Thyroxine Reflex 1.92 ng/dL (0.78-2.19)
[2021-07-20] MEDS: OLANZapine 5 MG TABLET 15 MG PO (08:55)
[2021-07-20] MEDS: OXcarbazepine 300 MG TABLET PO ×2 (08:56→17:11)
[2021-07-20] MEDS: FAMOTIDINE 20 MG TABLET PO ×2 (08:56→20:26)
[2021-07-20] MEDS: DOCUSATE SODIUM 100 MG CAPSULE PO ×2 (08:58→17:11)
[2021-07-20 10:11] LABS: Total Triiodothyronine (T3) 1.53 NG/ML (0.97-1.69)
--- NOTE | 2021-07-20 18:13 | PC.NURSE ---
This nurse was in room when pt received a threatening phone call. Charge nurse was made aware. Charge nurse spoke to pts father questioning who this person was threatening the pt. Charge nurse notified housemaid. Charge nurse, housemaid, and security went and spoke to pt.
[2021-07-21] MEDS: HYDROcodone/acetaminophen (*CRX) 5-325 MG TABLET 2 TAB PO ×3 (00:44→23:37)
[2021-07-21] MEDS: ceFAZolin 2 GM/D5W 50 ML 2 GM/50 ML BAG IVPB ×3 (01:59→16:59)
[2021-07-21 04:00] VITALS: BP 134/76; PULSE 100; RESP 18; TEMP 36.2; O2SAT 98
[2021-07-21] MEDS: KETOROLAC 30 MG/ML VIAL (*BKC) IV PUSH (06:35)
[2021-07-21 06:40] LABS: Basophils Percent Auto 0.2 % (0.2-1.2); Eosinophils Percent Auto 0.5 % (0-4.4); Hematocrit 40.6 % (37.0-47.0); Immature Granulocyte Absolute 0.03 K/mm3 (0.00-0.031); Immature Granulocyte Percent A 0.4 % (0-0.5); Lymphocytes Absolute Auto 1.88 K/mm3 (0.9-3.2); Lymphocytes Percent Auto 23.2 % (18.3-44.2); Mean Corpuscular Hemoglobin 30.4 pg (26-34); Mean Corpuscular Volume 94.9 fl (80-100); Mean Platelet Volume 10.3 fl (7.4-10.4); Monocytes Absolute Auto 1.6 K/mm3 (0.1-0.6); Monocytes Percent Auto 20.1 % (2.6-8.5); Neutrophils Absolute Auto 4.5 K/mm3 (1.3-6.7); Neutrophils Percent Auto 55.6 % (45.5-73.1); Platelet Count Result 224 k/mm3 (150-375); Red Blood Count 4.28 M/mm3 (4.2-5.4); Red Cell Distribution Width 12.5 % (11.5-14.5); White Blood Count 8.1 K/mm3 (4.5-10.0)
--- NOTE | 2021-07-21 07:10 | PM.IMPN ---
Progress Note: A&P Additional Plan START OF DOCTOR NASRA?S PROGRESS NOTE Subjective: The patient endorses no complaints at this time. She denies pain over left hand/arm. She denies paresthesias/anesthesias her left upper extremity. Overnight she denies fever, rigors, nausea, vomiting, cough, wheeze, abdominal pain, chest pain, dyspnea, or any other constitutional complaints. She states that she has been ambulating and eating well. 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 Sensorium of bilateral upper extremities are equal and intact Pertinent Laboratory Results / Pertinent Radiology Results / Pertinent Diagnostic Results / Pertinent Vital Signs: Vital signs stable. Borderline spending Assessment / Plan: Left olecranon fracture, status post July 19, 2021 with orthopedic surgery: ORIF left olecranon fracture with wound debridement. P.r.n. analgesia. IV lactated Ringer's at 30 mL/hour. Ancef 2 g IV q.8 hours. Follow up in Orthopedic surgery/recommendations COVID-19 positive. Asymptomatic. No treatment indicated at this time Bipolar disorder. Trileptal 300 mg p.o. b.i.d. plus Zyprexa 15 mg. Smoker. 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 Colace 100 mg p.o. b.i.d. plus Pepcid 20 mg p.o. q.12 hours DVT prophylaxis. Bilateral SCDs Disposition: Per orthopedic surgery meds documentation, anticipate discharge on July 22, 2021 END OF DOCTOR NASRA?S PROGRESS NOTE Subjective Date/time seen: 07/21/21 07:10 Objective Data Vital Signs Vital Signs: Vital Signs - 24 hr 07/20/21 08:55 07/20/21 12:00 07/20/21 16:00 Temperature 98.1 F 98.9 F 99.0 F Pulse Rate 98 93 115 H Respiratory Rate 24 H 20 24 H Blood Pressure 124/85 114/79 116/57 L Pulse Oximetry 96 97 98 07/20/21 20:00 07/20/21 23:37 07/21/21 04:00 Temperature 97.6 F 97.8 F 97.1 F L Pulse Rate 92 91 100 Respiratory Rate 20 18 18 Blood Pressure 112/71 108/66 134/76 Pulse Oximetry 99 98 98 Intake/Output Intake/Output: Intake & Output 07/18/21 07/19/21 07/20/21 07/21/21 23:59 23:59 23:59 23:59 Intake Total 690 1720 500 Balance 690 1720 500 Meds/Results Medications: Active Medications Generic Name Dose Route Start Last Admin Trade Name Freq PRN Reason Stop Dose Admin Acetaminophen 650 mg 07/19/21 15:10 Acetaminophen 325 Mg Tablet PO Q6H PRN Pain Rated 1-3 Hydrocodone Bitart/Acetaminophen 1 tab 07/19/21 15:10 Hydrocodone/Acetaminophen (*Crx) 5-325 Mg Tablet PO Q3H PRN Pain Rated 4-6 Hydrocodone Bitart/Acetaminophen 2 tab 07/19/21 15:10 07/21/21 00:44 Hydrocodone/Acetaminophen (*Crx) 5-325 Mg Tablet PO 2 tab Q6H PRN Administration Pain Rated 7-10 Docusate Sodium 100 mg 07/19/21 17:00 07/20/21 17:11 Docusate Sodium 100 Mg Capsule PO 100 mg BID JUAN Administration Famotidine 20 mg 07/19/21 21:00 07/20/21 20:26 Famotidine 20 Mg Tablet PO 20 mg Q12HR JUAN Administration Cefazolin Sodium 2 gm in 50 mls @ 100 mls/hr 07/19/21 18:00 07/21/21 02:29 Ancef 2 Gm/D5w 50 Ml IVPB 07/22/21 10:29 Infused Q8H JUAN Infusion Ketorolac Tromethamine 30 mg 07/19/21 23:41 07/21/21 06:35 Ketorolac 30 Mg/Ml Vial (*Bkc) IV PUSH 07/21/21 23:41 30 mg Q6H PRN Administration P
[2021-07-21 07:50] VITALS: BP 120/70; PULSE 92; RESP 20; TEMP 36.2; O2SAT 97
--- NOTE | 2021-07-21 08:01 | PM.PNORT ---
Progress Note: A&P Assessment and Plan (1) Olecranon fracture: Qualifiers: Encounter type: subsequent encounter Fracture type: open Open fracture type: open type I or II Laterality: left Fracture healing: with routine healing Qualified Code(s): S52.022E - Displaced fracture of olecranon process without intraarticular extension of left ulna, subsequent encounter for open fracture type I or II with routine healing Code(s): S52.023A - Displaced fracture of olecranon process without intraarticular extension of unspecified ulna, initial encounter for closed fracture Status: Acute Assessment and Plan: 40-year-old female postop day two ORIF grade 1 open left olecranon fracture. Seems to be doing well. Still getting IV antibiotics. These will run through tomorrow. Anticipate discharge tomorrow. Again, appreciate hospitalists input. Subjective Subjective Date/Time Seen: 07/21/21 08:01 Post Op day: 2 Principal diagnosis: Status post ORIF grade 1 open left olecranon fracture Interval history: overnight has been uneventful. Patient is not having any discomfort in her left arm at this point. No numbness in her left hand. Review of Systems Constitutional: Constitutional: Denies chills and Denies fever(s) Eyes: Eyes: Reports no additional eye complaints ENT: Reports system reviewed and no additional complaints, except as documented Cardiovascular: Cardiovascular: Denies chest pain and Denies dyspnea on exertion Respiratory: Respiratory: Reports no additional respiratory complaints and Denies dyspnea on exertion Gastrointestinal: Gastrointestinal: Denies abdominal pain and Denies bloating Exam Const: General: cooperative, no acute distress and alert Nutritional Appearance: well nourished ( BMI 29.8) HENMT: Head: normal to inspection Ears: hearing grossly normal bilaterally Face and sinus: face symmetric Mouth: Yes moist mucous membranes Teeth and gingiva: fair dentition Eyes: Alignment and Position: alignment normal and position normal Sclera: sclerae normal Neck: Neck: normal visual inspection and nontender Chest: Chest palpation & inspection: normal inspection of the chest Resp: Effort & Inspection: normal respiratory effort and able to speak in complete sentences GI: Inspection: other ( nondistended, nontender) Skin: General skin exam: normal color Rashes: no rashes Neuro: Speech: normal speech Sensory Exam: normal sensation Extrem: General: normal to inspection and other Other: Exam of the left upper extremity shows intact dressing. There is still some swelling in her digits but neurovascular status grossly intact to the left upper extremity. Exam limited somewhat secondary to the presence of the splint. Psych: Appearance: other ( Appears to be baseline) Objective Data Vital Signs Vital Signs: Vital Signs - 24 hr 07/20/21 08:55 07/20/21 12:00 07/20/21 16:00 Temperature 98.1 F 98.9 F 99.0 F Pulse Rate 98 93 115 H Respiratory Rate 24 H 20 24 H Blood Pressure 124/85 114/79 116/57 L Pulse Oximetry 96 97 98 07/20/21 20:00 07/20/21 23:37 07/21/21 04:00 Temperature 97.6 F 97.8 F 97.1 F L Pulse Rate 92 91 100 Respiratory Rate 20 18 18 Blood Pressure 112/71 108/66 134/76 Pulse Oximetry 99 98 98 07/21/21 07:50 Temperature 97.1 F L Pulse Rate 92 Respiratory Rate 20 Blood Pressure 120/70 Pulse Oximetry 97 Intake/Output Intake/Output: Intake & Output 07/18/21 07/19/21 07/20/21 07/21/21 23:59 23:59 23:59 23:59 Intake Total 690 / 690 1720 / 1720 500 / 500 Balance 690 / 690 1720 / 1720 500 / 500 Meds/Results Medications: Active Medications Generic Name Dose Route Start Last Admin Trade Name Freq PRN Reason Stop Dose Admin Acetaminophen 650 mg 07/19/21 15:10 Acetaminophen 325 Mg Tablet PO Q6H PRN Pain Rated 1-3 Hydrocodone Bitart/Acetaminophen 1 tab 07/19/21 15:10 Hydrocodone/Acetaminophen (*Crx) 5-325 Mg Tablet PO
[2021-07-21] MEDS: DOCUSATE SODIUM 100 MG CAPSULE PO ×2 (08:44→16:59)
[2021-07-21] MEDS: FAMOTIDINE 20 MG TABLET PO ×2 (08:44→20:54)
[2021-07-21] MEDS: OLANZapine 5 MG TABLET 15 MG PO (08:44)
[2021-07-21] MEDS: OXcarbazepine 300 MG TABLET PO ×2 (08:45→16:59)
[2021-07-21 12:00] VITALS: BP 112/70; PULSE 80; RESP 21; TEMP 36.1; O2SAT 98
[2021-07-21 12:55] LABS: EDCOVIDSCREEN Positive (Negative)
[2021-07-21 16:00] VITALS: BP 128/74; PULSE 92; RESP 22; TEMP 36.3; O2SAT 100
[2021-07-21 20:00] VITALS: BP 131/87; PULSE 112; RESP 22; TEMP 36.5; O2SAT 97
[2021-07-22] VITALS: BP 132/73; PULSE 99; RESP 20; TEMP 36.2; O2SAT 97
[2021-07-22] MEDS: ceFAZolin 2 GM/D5W 50 ML 2 GM/50 ML BAG IVPB ×2 (01:27→09:41)
[2021-07-22] MEDS: MAGNESIUM HYDROXIDE SUSP 30 ML UDC PO (01:27)
[2021-07-22 04:00] VITALS: BP 110/64; PULSE 104; RESP 20; TEMP 37.3; O2SAT 99
--- NOTE | 2021-07-22 06:53 | PM.IMPN ---
Progress Note: A&P Additional Plan START OF DOCTOR NASRA?S PROGRESS NOTE Subjective: The patient denies any pain in her left upper extremity. Overnight she denies fever, rigors, nausea, vomiting, cough, wheeze, abdominal pain, chest pain, dyspnea, or any other constitutional complaints. She states that she has been eating well and ambulating. She indicates that postoperatively she has not yet had a bowel movement. I have explained to the patient her current medical condition and plan of care and I have answered all her questions Objective: General: -Alert -No acute distress -No dyspnea -No tachypnea Heart: -iRegular rate -Regular rhythm -No murmurs -No gallops -No rubs Lungs: -No wheeze -No rhonchi -No rales Abdomen: -Normal bowel sounds in all four quadrants -No rebound -No guarding -No tenderness Extremities: -2/4 pulse in all four extremities -No clubbing -No cyanosis -No edema Additional Details / Additional Findings / Exceptions / Miscellaneous: The patient has 5/5 bilateral hand manager digital strength. Sensorium of bilateral upper extremities are equal and intact Pertinent Laboratory Results / Pertinent Radiology Results / Pertinent Diagnostic Results / Pertinent Vital Signs: Heart rate 104 beats per minute Assessment / Plan: Left olecranon fracture, status post July 19, 2021 with orthopedic surgery: ORIF left olecranon fracture with wound debridement. P.r.n. analgesia. IV lactated Ringer's at 30 mL/hour. Ancef 2 g IV q.8 hours. Follow up in Orthopedic surgery/recommendations COVID-19 positive. Asymptomatic. No treatment indicated at this time Bipolar disorder. Trileptal 300 mg p.o. b.i.d. plus Zyprexa 15 mg. Smoker. 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 Colace 200 mg p.o. b.i.d. plus senna 17.2 mg p.o. b.i.d.. plus Pepcid 20 mg p.o. q.12 hours DVT prophylaxis. Bilateral SCDs Disposition: Per orthopedic surgery meds documentation, anticipate discharge on July 22, 2021 END OF DOCTOR NASRA?S PROGRESS NOTE Subjective Date/time seen: 07/22/21 06:53 Objective Data Vital Signs Vital Signs: Vital Signs - 24 hr 07/21/21 07:50 07/21/21 12:00 07/21/21 16:00 Temperature 97.1 F L 97.0 F L 97.4 F L Pulse Rate 92 80 92 Respiratory Rate 20 21 H 22 H Blood Pressure 120/70 112/70 128/74 Pulse Oximetry 97 98 100 07/21/21 20:00 07/22/21 00:00 07/22/21 04:00 Temperature 97.7 F 97.2 F L 99.1 F Pulse Rate 112 H 99 104 H Respiratory Rate 22 H 20 20 Blood Pressure 131/87 132/73 110/64 Pulse Oximetry 97 97 99 Intake/Output Intake/Output: Intake & Output 07/19/21 07/20/21 07/21/21 07/22/21 23:59 23:59 23:59 23:59 Intake Total 690 1720 1700 100 Balance 690 1720 1700 100 Meds/Results Medications: Active Medications Generic Name Dose Route Start Last Admin Trade Name Freq PRN Reason Stop Dose Admin Acetaminophen 650 mg 07/19/21 15:10 Acetaminophen 325 Mg Tablet PO Q6H PRN Pain Rated 1-3 Hydrocodone Bitart/Acetaminophen 1 tab 07/19/21 15:10 Hydrocodone/Acetaminophen (*Crx) 5-325 Mg Tablet PO Q3H PRN Pain Rated 4-6 Hydrocodone Bitart/Acetaminophen 2 tab 07/19/21 15:10 07/21/21 23:37 Hydrocodone/Acetaminophen (*Crx) 5-325 Mg Tablet PO 2 tab Q6H PRN Administration Pain Rated 7-10 Docusate Sodium 100 mg 07/19/21 17:00 07/21/21 16:59 Docusate Sodium 100 Mg Capsule PO 100 mg BID JUAN Administration Famotidine 20 mg 07/19/21 21:00 07/21/21 20:54 Famotidine 20 Mg Tablet PO 20 mg Q12HR JUAN Administration Cefazolin Sodium 2 gm in 50 mls @ 100 mls/hr 07/19/21 18:00 07/22/21 01:50 Ancef 2 Gm/D5w 50 Ml IVPB 07/22/21 10:29 Infused Q8H JUAN Infusion Magnesium Hydroxide 30 ml 07/19/21 15:10 07/22/21 01:27 Magnesium Hydroxide Susp 30 Ml Udc P
[2021-07-22] MEDS: DOCUSATE SODIUM 100 MG CAPSULE 200 MG PO (09:43)
[2021-07-22] MEDS: OXcarbazepine 300 MG TABLET PO (09:43)
[2021-07-22] MEDS: OLANZapine 5 MG TABLET 15 MG PO (09:43)
[2021-07-22] MEDS: FAMOTIDINE 20 MG TABLET PO (09:43)
[2021-07-22] MEDS: SENNOSIDES 8.6 MG TABLET 17.2 MG PO (09:44)
[2021-07-22 10:10] VITALS: BP 109/71; PULSE 94; RESP 16; TEMP 36.3; O2SAT 100
--- NOTE | 2021-07-22 14:19 | PM.DS ---
DS: Admitting Diagnosis Discharge Date July 22, 2021 Admitting Diagnosis Grade 1 open left olecranon fracture status post I&D with ORIF DS: Discharge Diagnosis Discharge Diagnosis (1) Olecranon fracture: Qualifiers: Encounter type: subsequent encounter Fracture type: open Open fracture type: open type I or II Laterality: left Fracture healing: with routine healing Qualified Code(s): S52.022E - Displaced fracture of olecranon process without intraarticular extension of left ulna, subsequent encounter for open fracture type I or II with routine healing Code(s): S52.023A - Displaced fracture of olecranon process without intraarticular extension of unspecified ulna, initial encounter for closed fracture Status: Acute Assessment and Plan: Patient will be going to a swing bed. She will be on oral antibiotics until she follows up with me in about a week and half. The arm is splinted and dressed. The dressing should not be removed. DS: Summary Hospital Course Reason for hospitalization: IV antibiotic therapy after treatment of open fracture Hospital Course: Following the patient's surgery she was admitted to the floor. She made good progress having virtually no pain in her arm for most of her stay. She is going to be discharged to a care facility and will continue with oral antibiotics. Hospitalist service was consulted during her stay. Status at Discharge Functional status at discharge: independent ambulation Overall status at discharge: patient is progressing back to baseline Exam Narrative: Other than the dressing change of the elbow, remainder of the exam is unchanged. Const: General: cooperative, comfortable and no acute distress Nutritional Appearance: well nourished Extrem: Other: The left elbow dressing was changed. Wound is healing up very nicely. No erythema noted. Skin edges well apposed. Neurovascular status grossly intact left upper extremity. A well-padded long-arm posterior splint was reapplied. Discharge Plan Discharge Attending physician on discharge: Lavell Velez Consulting providers: Darryl Roca Discharging Clinician: Lavell Velez Patient Disposition: [place] [facility] Activity: no shower and other - see discharge instructions Diet: as tolerated Discharge Instructions: Please use sling left arm when up and around. Please do not remove the dressing from the left upper extremity under any circumstance. Please limit the use of the left arm for only the gentlest of activities. Follow-up is in about a week and half. Please call the office to verify. [phone] Please take all of the antibiotics as prescribed. Extended-release Tylenol 650 milligram tablet can be taken every 8 hours for pain. Call the office with any questions prior to follow-up. Patient Instructions: Antibiotic Form, How to Stop Smoking (GEN) Stand Alone Forms: General Discharge Information Discharge Medications: Continued mupirocin 2 % ointment 1 applic TOPICAL TID Qty: 30 RF: 0 olanzapine 15 mg tablet 15 mg PO DAILY RF: 0 oxcarbazepine 300 mg tablet 300 mg PO BID RF: 0 cephalexin 500 mg tablet 1,000 mg PO Q12H 3 Days Qty: 12 RF: 0 Discontinued acetaminophen-codeine 300-30 mg tablet 1 - 1.5 tablet PO HS PRN (Reason: pain) Qty: 20 RF: 0 hydrocodone-acetaminophen 5-325 mg tablet 1 tablet PO Q6H PRN (Reason: pain) Qty: 12 RF: 0 Date of admission: 07/19/21 15:10 Primary Care Provider: PHYSICIAN,CHEMICALS FERMENTATION OPERATOR Admitting Provider: Lavell Velez Attending physician on admission: Lavell Velez Condition: Improved Quality VTE Prophylaxis VTE prophylaxis: mechanical ordered and pharmacologic ordered
== END 2021-07-22 15:05 | DRG 315 ==
LOC: ANH3MEDSUR 15:34
PROVIDERS: Internal Medicine; Physician Assistant; Admitting Provider Orthopaedic Surgery; Visit Provider Orthopaedic Surgery
PROC: 0PSL04Z Reposition Left Ulna with Internal Fixation Device, Open Approach (ICD-10-PCS; principal; 2021-07-19 12:00)
DX: S52.022B Displaced fracture of olecranon process without intraarticular extension of left ulna, initial encounter for open fracture type I or II (principal); W19.XXXA Unspecified fall, initial encounter; U07.1 COVID-19; F31.9 Bipolar disorder, unspecified; F17.210 Nicotine dependence, cigarettes, uncomplicated; G81.94 Hemiplegia, unspecified affecting left nondominant side; Z87.820 Personal history of traumatic brain injury; Z93.1 Gastrostomy status; S06.309S Unspecified focal traumatic brain injury with loss of consciousness of unspecified duration, sequela; W13.0XXS Fall from, out of or through balcony, sequela; Z91.81 History of falling
CPT/HCPCS: 36415; 80048; 80076; 83735; 84439; 84443; 84480; 85025; 87426; 93970; 97162; 97165; 97530; A9270; C1713; C1769; C9803; J0330; J0690; J1885; J2250; J2270; J2405; J2704; J2710; J3010; J7120